=== PATIENT | male | born 1970 | race Caucasian/White ===

== ENCOUNTER 2024-04-13 05:17 | Inpatient (IN) ==
[2024-04-13] MEDS ORDERED: IOPAMIDOL 100 ML BOTTLE IV ONE (05:18)
[2024-04-13] MEDS: ONDANSETRON 4 MG/2 ML VIAL IV ONE ×2 (05:53→06:22)
[2024-04-13] MEDS: fentaNYL 100 MCG/2 ML VIAL IV ONE (05:53)
[2024-04-13 06:07] LABS: Basophils # (Auto) 0.02 K/mcL (0.00-0.30); Basophils % (Auto) 0.1 % (0.0-2.0); Eosinophils # (Auto) 0.02 K/mcL (0.00-0.70); Eosinophils % (Auto) 0.1 % (0.0-7.0); Hemoglobin 17.6 g/dL (13.7-17.5); Lymphocytes # (Auto) 0.39 K/mcL (1.50-4.80); Lymphocytes % (Auto) 1.6 % (15.5-49.0); Mean Cell Volume 91.7 fL (80.0-100.0); Mean Corpuscular HGB Conc 34.5 g/dL (31.0-36.0); Mean Platelet Volume 10.8 fL (8.8-12.5); Monocytes # (Auto) 1.68 K/mcL (0.10-0.90); Monocytes % (Auto) 6.8 % (1.0-12.0); Neutrophils % (Auto) 91.2 % (38.0-78.0); Platelet Count 302 K/mcL (140-440); RBC 5.56 M/mcL (4.63-6.08); Red Cell Distribution Width 12.7 % (11.5-14.5); WBC 24.7 K/mcL (4.5-11.0)
[2024-04-13] MEDS: 0.9 % SODIUM CHLORIDE 1,000 ML IV ONE (06:21)
[2024-04-13 06:51] LABS: ALT/SGPT 22 U/L (<40); AST/SGOT 26 U/L (<40); Albumin 4.8 gm/dL (3.2-5.2); Albumin/Globulin Ratio 1.7 (1.0-2.3); Alkaline Phosphatase 97 U/L (39-117); Bilirubin,Total 0.6 mg/dL (0.1-1.0); Blood Urea Nitrogen 20 mg/dL (6-20); Calcium 10.2 mg/dL (8.6-10.4); Carbon Dioxide 19 mmol/L (22-30); Chloride 97 mmol/L (96-108); Globulin 2.9 gm/dL (2.2-3.7); Glomerular Filtration Rate 77; Glucose 215 mg/dL (70-105); Potassium 3.8 mmol/L (3.3-5.1); Sodium 142 mmol/L (133-145)
[2024-04-13] MEDS: METOCLOPRAMIDE 10 MG/2 ML VIAL IV ONE (07:40)
[2024-04-13] MEDS: HYDROmorphone 1 MG/ML SYRINGE IV PRN (07:40)
[2024-04-13] MEDS: PIPERACILLIN SODIUM/TAZOBACTAM 3.375 GM in DEXTROSE 5% IN WATER 50 ML IV ONE (08:38)
[2024-04-13 09:14] LABS: Appearance,Urine Clear (Clear); Bilirubin,Urine Negative (Negative); Color,Urine Yellow; Glucose,Urine (UA) Negative (Negative); Ketones,Urine 15 mg/dL (Negative); Leukocyte Esterase,Urine Negative /uL (Negative); Nitrate,Urine Negative (Negative); PH,Urine 6.5 (5.0-9.0); Protein,Urine Negative (Negative); Specific Gravity,Urine <= 1.005 (1.000-1.035); Urine Blood Negative ery/mcL (Negative); Urine RBC 0 /hpf (0-3); Urine Squamous Epithelial Cell 0 /hpf (0-4); Urine WBC 0 /hpf (0-4); Urobilinogen,Urine Normal
[2024-04-13] MEDS ORDERED: ONDANSETRON 4 MG/2 ML VIAL IV PRN (09:23)
[2024-04-13] MEDS: PIPERACILLIN SODIUM/TAZOBACTAM 4.5 GM in DEXTROSE 5% IN WATER 100 ML IV SCH ×2 (12:43→13:34)
[2024-04-13] MEDS: DEXTROSE 5%-NS 1,000 ML IV SCH (12:53)
[2024-04-13] MEDS: 0.9 % SODIUM CHLORIDE 1,000 ML IV SCH (12:54)
[2024-04-13] MEDS: PANTOPRAZOLE 40 MG VIAL IV SCH (16:21)
[2024-04-13] MEDS: BENZOCAINE/MENTHOL 1 LOZENGE PO PRN (16:21)
[2024-04-13] MEDS: ACETAMINOPHEN 650 MG/65 ML BAG IV PRN (18:08)
[2024-04-13] MEDS: HYDROmorphone 0.5 MG/0.5 ML SYRINGE IV PRN (18:38)
[2024-04-14 06:11] LABS: Hematocrit 39.1 % (40.1-51.0); Hemoglobin 12.9 g/dL (13.7-17.5); Mean Cell Volume 95.4 fL (80.0-100.0); Mean Platelet Volume 10.3 fL (8.8-12.5); Platelet Count 202 K/mcL (140-440); Red Cell Distribution Width 13.4 % (11.5-14.5); WBC 8.9 K/mcL (4.5-11.0)
[2024-04-14 06:52] LABS: Blood Urea Nitrogen 17 mg/dL (6-20); Calcium 7.9 mg/dL (8.6-10.4); Carbon Dioxide 25 mmol/L (22-30); Chloride 107 mmol/L (96-108); Glomerular Filtration Rate 86; Glucose 130 mg/dL (70-105); Potassium 3.9 mmol/L (3.3-5.1); Sodium 141 mmol/L (133-145)
[2024-04-15 05:59] LABS: Hematocrit 36.9 % (40.1-51.0); Mean Cell Volume 96.3 fL (80.0-100.0); Mean Corpuscular HGB Conc 32.5 g/dL (31.0-36.0); Mean Platelet Volume 10.3 fL (8.8-12.5); Platelet Count 175 K/mcL (140-440); RBC 3.83 M/mcL (4.63-6.08); Red Cell Distribution Width 13.3 % (11.5-14.5); WBC 6.3 K/mcL (4.5-11.0)
[2024-04-15 06:14] LABS: Blood Urea Nitrogen 10 mg/dL (6-20); Calcium 7.9 mg/dL (8.6-10.4); Carbon Dioxide 25 mmol/L (22-30); Chloride 109 mmol/L (96-108); Glomerular Filtration Rate 98; Glucose 128 mg/dL (70-105); Potassium 3.8 mmol/L (3.3-5.1); Sodium 142 mmol/L (133-145)
[2024-04-15] MEDS ORDERED: ALBUTEROL SULFATE 60 PUFF INHALER INH PRN (12:33)
[2024-04-15] MEDS: DEXTROSE 5%-NS 1,000 ML IV SCH ×2 (17:46→20:37)
[2024-04-15] MEDS: FLUTICASONE/SALMETEROL 250/50 INHALER #14 INH SCH (20:38)
[2024-04-16 06:12] LABS: Hematocrit 35.7 % (40.1-51.0); Mean Cell Volume 93.9 fL (80.0-100.0); Mean Corpuscular HGB Conc 33.6 g/dL (31.0-36.0); Mean Platelet Volume 10.1 fL (8.8-12.5); Platelet Count 190 K/mcL (140-440); Red Cell Distribution Width 12.7 % (11.5-14.5); WBC 6.4 K/mcL (4.5-11.0)
[2024-04-16 06:44] LABS: Blood Urea Nitrogen 7 mg/dL (6-20); Calcium 8.5 mg/dL (8.6-10.4); Carbon Dioxide 24 mmol/L (22-30); Chloride 107 mmol/L (96-108); Glomerular Filtration Rate 98; Glucose 106 mg/dL (70-105); Potassium 3.7 mmol/L (3.3-5.1); Sodium 140 mmol/L (133-145)
[2024-04-16] MEDS: LOSARTAN 50 MG TABLET PO SCH (08:10)
[2024-04-16 11:30] VITALS: TEMP 97.6; O2SAT 100
== END 2024-04-16 15:21 | disposition home or self-care (01) | DRG 392 ==
LOC: ED 05:17 → MEDSUR 11:49 → INTOOBSV 11:49
PROVIDERS: ADMIT Surgery Surgical Critical Care; ATTEND Surgery Surgical Critical Care